=== PATIENT | female | born 1945 | race Two or more races ===

== ENCOUNTER 2017-10-19 20:04 | Emergency (ER) ==
[2017-10-19 20:13] VITALS: BP 117/69; TEMP 98.1; BMI 24.3
[2017-10-19 20:41] LABS: BASOPHILS % (AUTO) 0.2 % (0.0-3.0); EOSINOPHILS % (AUTO) 0.5 % (0.0-7.0); HEMATOCRIT 37.2 % (37.0-47.0); HEMOGLOBIN 12.6 g/dl (12.0-16.0); IMMATURE GRANULOCYTE % (AUTO) 0.2 % (0.0-5.0); LYMPHOCYTES # (AUTO) 1.5 K/uL (0.60-3.4); LYMPHOCYTES % (AUTO) 23.7 (10.0-50.0); MEAN CORPUSCULAR HEMOGLOBIN 30.3 pg (27.0-31.0); MEAN CORPUSCULAR HGB CONC 33.9 (31.8-35.4); MEAN CORPUSCULAR VOLUME 89.4 fl (81.0-99.0); MONOCYTES # (AUTO) 0.8 K/uL (0.4-2.0); MONOCYTES % (AUTO) 12.5 (0-10); NEUTROPHILS # (AUTO) 4.1 K/ul (2.0-6.9); NEUTROPHILS % (AUTO) 62.9; PLATELET COUNT 187 10^3/uL (140-440); RED BLOOD COUNT 4.16 10^6/ul (4.20-5.40); WHITE BLOOD COUNT 6.42 K/ul (4.6-10.2)
[2017-10-19 20:43] LABS: ABG BASE EXCESS 1 (-2.0-2.0); ABG HCO3 25.6 (22.0-26.0); ABG PCO2 39.2 mmHg (35-45); ABG PH 7.423 (7.35-7.45); ABG TCO2 27 (22.0-28.0)
--- NOTE | 2017-10-19 20:47 | CT ---
Exam: CT brain without contrast Clinical indication: Acute confusion. Comparison: None available. TECHNIQUE: Axial unenhanced CT images from the skull base through the brain were obtained. Coronal and sagital reformats were performed. Findings: There is no evidence of intra or extra-axial hemorrhage. There there are a couple of small incidental anterior parafalcine lipomas.There is no evidence of mas s, infarct or midline shift. The ventricles and basilar cisterns are within normal limits. The visualized paranasal sinuses and mastoid air cells are clear. The visualized bony structures are unremarkable. Impression: 1. No acute intracranial abnormality. 2. 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
--- NOTE | 2017-10-19 20:52 | CT ---
Exam: CT thorax without IV contrast. Clinical indication: Cough and confusion. TECHNIQUE: Axial unenhanced CT images of the thorax were obtained followed by coronal and sagittal r eformats. Findings: The there are multiple bilateral calcified pulmonary granulomas, consistent with incidental evidence of old healed granulomatous disease. The remainder of the pulmonary parenchyma is unremarkable. There is no pleural abnormality. There are no enlarged axillary, hilar or mediastinal lymph nodes, by size criteria. There are incidental calcified hilar and mediastinal lymph nodes, consistent with incidental evidence of old healed granulomatous disease. There are coronary artery calcifications. There has been a prior cholecystectomy. The remainder of the visualized portions of the upper abdome n are within normal limits. The visualized bony structures are unremarkable for the patient's age. Impression: 1. Coronary artery calcifications. 2. Incidental evidence of old healed granulomatous disease. 3. Otherwise unremarkable CT of the thorax.
[2017-10-19 21:02] LABS: BILIRUBIN,URINE Negative (NEGATIVE); KETONES,URINE Trace (NEGATIVE); LEUKOCYTE ESTERASE ,URINE 1+ (NEGATIVE); NITRITE,URINE Negative (NEGATIVE); PH,URINE 6.5 (5-9); PROTEIN,URINE Negative (NEGATIVE); URINE, BLOOD Negative (NEGATIVE)
[2017-10-19 21:03] LABS: FLU INTERNAL QC INTERNAL QC VALID; RAPID FLU A NEGATIVE (NEGATIVE); RAPID FLU B NEGATIVE (NEGATIVE)
[2017-10-19 21:05] LABS: ALBUMIN 3.5 g/dL (3.4-5.0); ALBUMIN/GLOBULIN RATIO 1.06; ANION GAP 15.6; BILIRUBIN,TOTAL 0.5 mg/dL (0.00-1.20); BUN/CREATININE RATIO 12.72; CALCIUM 8.9 mg/dL (8.2-10.2); CREATININE 1.65 mg/dL (0.60-1.30); POTASSIUM 3.6 mmol/L (3.5-5.10); TOTAL PROTEIN 6.8 g/dL (5.8-8.1)
[2017-10-19 21:10] LABS: COCAIN SCREEN,URINE NEGATIVE (NEGATIVE)
[2017-10-19 21:22] LABS: ADD URINE MICROSCOPIC YES
[2017-10-19 21:23] LABS: BACTERIA,URINE 1+ (NOT PRESENT)
[2017-10-19] MEDS ORDERED: CIPRO PO STA (21:48)
[2017-10-19 21:51] LABS: TROPONIN I 0.014 ng/ml (0.0000-0.4000)
--- NOTE | 2017-10-19 22:01 | ED.PDOC ---
General ED Provider: Dr. PILY ROBBINS-ER Chief Complaint: Altered Mental Status Stated Complaint: she was confused earlier but now she is ok--here today with her daughter Time Seen by Physician: 20:10 Mode of Arrival: Walk-In Information Source: Patient, Family Exam Limitations: No limitations Nursing and Triage Documentation Reviewed and Agree: Yes Reviewed sepsis parameters & appropriate labs ordered?: Yes System Inflammatory Response Syndrome: Not Applicable Sepsis Protocol: For patient's 13 years and over: Temp is 96.8 and below OR 101 and greater Pulse >90 BPM Resp >20/minute Acutely Altered Mental Status Are patient's symptoms suggestive of a new infection, such as: -Pneumonia -Skin, Soft Tissue -Endocarditis -UTI -Bone, Joint Infection -Implantable Device -Acute Abdominal Infection -Wound Infection -Meningitis -Blood Stream Catheter Infection -Unknown Neurological Complaint Exam - Altered Mental Status Complaint/Exam Current Mental Status: Confusion Last Known Well: earlier today Onset: Gradual Symptoms Are: Resolved Initial Severity: Mild Current Severity: None Eye Deviation Present: No Character: Reports: Confusion Aggravating: Reports: None Associated Signs and Symptoms: Denies: Dizziness, Weakness, Headache, Fever, Illness, Nuchal rigidity, Seizure, Nausea, Vomiting, Recently depressed, Trauma Carotid Bruit Present: No Nystagmus Present: No Gag Reflex Present: Yes Meningeal Signs Positive: No Focal Weakness: Present: None Focal Sensory Loss: Present: None Gait: Normal [id number]: Normal Findings Romberg Test Positive: No Babinski Sign: Negative Right, Negative Left Heel to Toe Normal: Yes Signs of Injury: Present: Normal findings Thrombolytics Considered: No Differential Diagnoses: Intracranial Bleed, Metabolic Disorder, TIA, CVA Review of Systems - Review Of Systems Constitutional: Reports: No symptoms Eyes: Reports: No symptoms Ears, Nose, Mouth, Throat: Reports: No symptoms Respiratory: Reports: No symptoms Cardiac: Reports: No symptoms GI: Reports: No symptoms : Reports: No symptoms Musculoskeletal: Reports: No symptoms Skin: Reports: No symptoms Neurological: Reports: Cognitive dysfunction Endocrine: Reports: No symptoms Hematologic/Lymphatic: Reports: No symptoms All Other Systems: Reviewed and Negative Past Medical History - Past Medical History Previously Healthy: Yes Endocrine: Reports: Unknown Cardiovascular: Reports: Unknown Respiratory: Reports: Unknown Hematological: Reports: Unknown Gastrointestinal: Reports: Unknown Genitourinary: Reports: Unknown Neuro/Psych: Reports: Unknown Musculoskeletal: Reports: Unknown Cancer: Reports: Unknown Last Menstrual Period: YEARS - Surgical History General Surgical History: Reports: Unknown - Family History Family History: Reports: Unknown - Social History Smoking Status: Former smoker Hx Substance Use: No Alcohol Screening: None - Immunizations Tetanus Shot up to Date: Yes Physical Exam - Physical Exam Appearance: Well-appearing, No pain distress, Well-nourished Eyes: SUSAN, EOMI, Conjunctiva clear ENT: Ears normal, Nose normal, Oropharynx normal Neck: Supple Respiratory: Airway patent, Breath sounds clear, Breath sounds equal, Respirations nonlabored Cardiovascular: RRR, Pulses normal, No rub, No murmur GI/: Soft, Nontender, No masses, Bowel sounds normal, No Organomegaly Musculoskeletal: Normal strength, ROM intact, No edema, No calf tenderness Skin: Warm, Dry, Normal color Neurological: Sensation intact, Motor intact, Reflexes intact, Cranial nerves intact, Alert, Oriented Psychiatric: Affect appropriate, Mood appropriate Interpretation - Radiology Interpretation Radiology Interpretation By: Radiologist Radiology Results: Negative Exam Interpreted: CT Scan - EKG Interpretation Time of EKG #1: 22:02 Rate: Normal Rhythm: Sinus Ectopy: None Amanda: NL ST Segment: Normal Re-Evaluation - Re-Evaluation Time of Re-Evaluation: 22:02 Status: Improved (alert now) Vital Signs Stable: Yes Pain Level: 0 Appearance: NAD Lungs: Clear Skin: Warm and Dry Neuro: Alert and Oriented X3 CV: RRR Critical Care Note - Critical Care Note Total Time (mins): 0 Course - Course Hematology/Chemistry: 10/19/17 20:37 10/19/17 20:37 Orders, Labs, Meds: Lab Review 10/19/17 10/19/17 10/19/17 20:12 20:23 20:23 WBC RBC Hgb Hct MCV MCH MCHC RDW Coeff of Vick Plt Count Immature Gran % (Auto) Neut % (Auto) Lymph % (Auto) Angelina % (Auto) Eos % (Auto) Baso % (Auto) Immature Gran # (Auto) Neut # Lymph # Angelina # Eos # Baso # D-Dimer (Manual) Puncture Site Rrad O2 Saturation 96.0 ABG pH 7.423 ABG pCO2 39.2 ABG pO2 83.0 L ABG HCO3 25.6 ABG Total CO2 27 ABG Base Excess 1 Gurinder Test + FiO2 % 21.0 Sodium Potassium Chloride Carbon Dioxide Anion Gap BUN Creatinine Estimated GFR (MDRD) BUN/Creatinine Ratio Glucose Calcium Total Bilirubin AST ALT Alkaline Phosphatase Ammonia Total Creatine Kinase CK-MB (CK-2) CK-MB (CK-2) % Troponin I B-Natriuretic Peptide Total Protein Albumin Globulin Albumin/Globulin Ratio TSH Urine Color Yellow Urine Clarity Clear Urine pH 6.5 Ur Specific [place] 1.010 Urine Protein Negative Urine Glucose (UA) Negative Urine Ketones Trace Urine Blood Negative Urine Nitrite Negative Urine Bilirubin Negative Urine Urobilinogen 0.2 Ur Leukocyte Esterase 1+ Urine Microscopic RBC 0-2 Urine Microscopic WBC 5-10 Ur Squamous Epith Cells 10-20 Urine Bacteria 1+ Urine Opiates Screen Negative Ur Oxycodone Screen Negative Urine Methadone Screen Negative Ur Propoxyphene Screen Negative Ur Barbiturates Screen Negative U Tricyclic Antidepress Negative Ur Phencyclidine Scrn Negative Ur Amphetamine Screen Negative U Methamphetamines Scrn Negative U Benzodiazepines Scrn Negative Urine Cocaine Screen Negative U Cannabinoids Screen Negative Influenza A (Rapid) Influenza B (Rapid) 10/19/17 10/19/17 10/19/17 20:37 20:37 20:37 WBC 6.42 RBC 4.16 L Hgb 12.6 Hct 37.2 MCV 89.4 MCH 30.3 MCHC 33.9 RDW Coeff of Vick 12.5 Plt Count 187 Immature Gran % (Auto) 0.2 Neut % (Auto) 62.9 Lymph % (Auto) 23.7 Angelina % (Auto) 12.5 H Eos % (Auto) 0.5 Baso % (Auto) 0.2 Immature Gran # (Auto) 0.0 Neut # 4.1 Lymph # 1.5 Angelina # 0.8 Eos # 0.0 Baso # 0.0 D-Dimer (Manual) Puncture Site O2 Saturation ABG pH ABG pCO2 ABG pO2 ABG HCO3 ABG Total CO2 ABG Base Excess Gurinder Test FiO2 % Sodium 139 Potassium 3.6 Chloride 103 Carbon Dioxide 24 Anion Gap 15.6 BUN 21 H Creatinine 1.65 H Estimated GFR (MDRD) 31.00 BUN/Creatinine Ratio 12.72 Glucose 152 H Calcium 8.9 Total Bilirubin 0.5 AST 24 ALT 19 Alkaline Phosphatase 59 Ammonia 25 Total Creatine Kinase CK-MB (CK-2) CK-MB (CK-2) % Troponin I B-Natriuretic Peptide Total Protein 6.8 Albumin 3.5 Globulin 3.3 Albumin/Globulin Ratio 1.06 TSH Urine Color Urine Clarity Urine pH Ur Specific [place] Urine Protein Urine Glucose (UA) Urine Ketones Urine Blood Urine Nitrite Urine Bilirubin Urine Urobilinogen Ur Leukocyte Esterase Urine Microscopic RBC Urine Microscopic WBC Ur Squamous Epith Cells Urine Bacteria Urine Opiates Screen Ur Oxycodone Screen Urine Methadone Screen Ur Propoxyphene Screen Ur Barbiturates Screen U Tricyclic Antidepress Ur Phencyclidine Scrn Ur Amphetamine Screen U Methamphetamines Scrn U Benzodiazepines Scrn Urine Cocaine Screen U Cannabinoids Screen Influenza A (Rapid) Influenza B (Rapid) 10/19/17 10/19/17 10/19/17 20:37 20:37 20:37 WBC RBC Hgb Hct MCV MCH MCHC RDW Coeff of Vick Plt Count Immature Gran % (Auto) Neut % (Auto) Lymph % (Auto) Angelina % (Auto) Eos % (Auto) Baso % (Auto) Immature Gran # (Auto) Neut # Lymph # Angelina # Eos # Baso # D-Dimer (Manual) 762.28 Puncture Site O2 Saturation ABG pH ABG pCO2 ABG pO2 ABG HCO3 ABG Total CO2 ABG Base Excess Gurinder Test FiO2 % Sodium Potassium Chloride Carbon Dioxide Anion Gap BUN Creatinine Estimated GFR (MDRD) BUN/Creatinine Ratio Glucose Calcium Total Bilirubin AST ALT Alkaline Phosphatase Ammonia Total Creatine Kinase 379 CK-MB (CK-2) 5.0 H CK-MB (CK-2) % 1.25788 Troponin I 0.0140 B-Natriuretic Peptide 114 H Total Protein Albumin Globulin Albumin/Globulin Ratio TSH Urine Color Urine Clarity Urine pH Ur Specific [place] Urine Protein Urine Glucose (UA) Urine Ketones Urine Blood Urine Nitrite Urine Bilirubin Urine Urobilinogen Ur Leukocyte Esterase Urine Microscopic RBC Urine Microscopic WBC Ur Squamous Epith Cells Urine Bacteria Urine Opiates Screen Ur Oxycodone Screen Urine Methadone Screen Ur Propoxyphene Screen Ur Barbiturates Screen U Tricyclic Antidepress Ur Phencyclidine Scrn Ur Amphetamine Screen U Methamphetamines Scrn U Benzodiazepines Scrn Urine Cocaine Screen U Cannabinoids Screen Influenza A (Rapid) Influenza B (Rapid) 10/19/17 10/19/17 20:37 21:11 WBC RBC Hgb Hct MCV MCH MCHC RDW Coeff of Vick Plt Count Immature Gran % (Auto) Neut % (Auto) Lymph % (Auto) Angelina % (Auto) Eos % (Auto) Baso % (Auto) Immature Gran # (Auto) Neut # Lymph # Angelina # Eos # Baso # D-Dimer (Manual) Puncture Site O2 Saturation ABG pH ABG pCO2 ABG pO2 ABG HCO3 ABG Total CO2 ABG Base Excess Gurinder Test FiO2 % Sodium Potassium Chloride Carbon Dioxide Anion Gap BUN Creatinine Estimated GFR (MDRD) BUN/Creatinine Ratio Glucose Calcium Total Bilirubin AST ALT Alkaline Phosphatase Ammonia Total Creatine Kinase CK-MB (CK-2) CK-MB (CK-2) % Troponin I B-Natriuretic Peptide Total Protein Albumin Globulin Albumin/Globulin Ratio TSH 0.208 L Urine Color Urine Clarity Urine pH Ur Specific [place] Urine Protein Urine Glucose (UA) Urine Ketones Urine Blood Urine Nitrite Urine Bilirubin Urine Urobilinogen Ur Leukocyte Esterase Urine Microscopic RBC Urine Microscopic WBC Ur Squamous Epith Cells Urine Bacteria Urine Opiates Screen Ur Oxycodone Screen Urine Methadone Screen Ur Propoxyphene Screen Ur Barbiturates Screen U Tricyclic Antidepress Ur Phencyclidine Scrn Ur Amphetamine Screen U Methamphetamines Scrn U Benzodiazepines Scrn Urine Cocaine Screen U Cannabinoids Screen Influenza A (Rapid) Negative Influenza B (Rapid) Negative Orders Category Date Time Status ABG DRAW REQUEST Stat CARDIO 10/19/17 20:12 Completed EKG-(ED ONLY) Stat CARDIO 10/19/17 20:12 Completed Cook'S Assistant [ED RUBBER AND PLASTICS WORKER APPLIED] .ONCE EMERGENCY 10/19/17 20:14 Active ABG Stat LAB 10/19/17 20:12 Completed AMMONIA Stat LAB 10/19/17 20:37 Completed BNP [B-TYPE NATRIURETIC PEPTIDE] Stat LAB 10/19/17 20:37 Completed CBC W/ AUTO DIFF Stat LAB 10/19/17 20:37 Completed COMPREHENSIVE METABOLIC PANEL Stat LAB 10/19/17 20:37 Completed CREATINE KINASE Stat LAB 10/19/17 20:37 Completed D-DIMER Stat LAB 10/19/17 20:37 Completed MOLECULAR GROUP A STREP Stat LAB 10/19/17 20:37 Results RAPID FLU A/B Stat LAB 10/19/17 20:37 Completed STREP SCREEN Stat LAB 10/19/17 20:37 Results TROPONIN I Stat LAB 10/19/17 20:37 Completed TSH [THYROID STIMULATING HORMONE] Stat LAB 10/19/17 21:11 Completed URINALYSIS C & S IF INDICATED Stat LAB 10/19/17 20:23 Completed URINE CULTURE Stat LAB 10/19/17 20:23 Received URINE DRUG SCREEN (RAPID FOR ED) [DRUG SCREEN, URINE, LAB 10/19/17 20:23 Completed RAPID] Stat Ciprofloxacin HCl [Cipro] MEDS 10/19/17 21:48 Discontinued 250 mg PO ONCE STA CT CHEST W/O CONTRAST Stat RADS 10/19/17 20:[address] HEAD W/O CONTRAST Stat RADS 10/19/17 20:13 Completed Medications Discontinued Medications Generic Name Dose Route Start Last Admin Trade Name Freq PRN Reason Stop Dose Admin Ciprofloxacin 250 mg 10/19/17 21:48 10/19/17 21:54 Cipro PO 10/19/17 21:49 250 mg ONCE STA Administration Vital Signs: Temp Pulse Resp BP Pulse Ox 10/19/17 20:05 98.1 F 84 15 117/69 95 Departure - Departure Time of Disposition: 22:02 Disposition: HOME SELF-CARE Discharge Problem: Altered mental status UTI (urinary tract infection) Qualifiers: Urinary tract infection type: site unspecified Hematuria presence: without hematuria Qualified Code(s): N39.0 - Urinary tract infection, site not specified Instructions: Urinary Tract Infection in Women (ED) Condition: Fair Pt referred to PMD for follow-up: Yes Additional Instructions: cipro 250mg bid x 7 days--hydrate wtih fluids--f/u wtih pcp in a few days to recheck ua Allergies/Adverse Reactions: Allergies No Known Allergies Allergy (Unverified 10/19/17 20:09) Home Medications: Ambulatory Orders Atenolol 50 mg PO Q12HR 10/19/17 Celecoxib 100 mg PO DAILY 10/19/17 Chlorthalidone 25 mg PO 2 TIMES PER WEEK 10/19/17 Esomeprazole Magnesium [Nexium] 40 mg PO DAILY 10/19/17 Gabapentin 300 mg PO TID 10/19/17 Lisinopril [Zestril] 40 mg PO DAILY 10/19/17 Metformin HCl 1,000 mg PO BID 10/19/17 Olanzapine [Zyprexa] 20 mg PO DAILY 10/19/17 Pravastatin Sodium [Pravachol] 20 mg PO EVERY OTHER DAY 10/19/17 Disposition Discussed With: Patient, Family
== END 2017-10-19 22:35 | disposition home or self-care (01) ==
LOC: ED 20:04
DX: N39.0 Urinary tract infection, site not specified (principal); R41.82 Altered mental status, unspecified
CPT/HCPCS: 36415; 80053; 80306; 81001; 82140; 82550; 82553; 82803; 83880; 84443; 84484; 85025; 85379; 87086; 87651; 87804; 87880; 93005; 93010; 99283